=== PATIENT | male | born 1970 | race Caucasian/White ===

== ENCOUNTER 2016-10-29 20:52 | Emergency (ER) | payer MEDICAID ==
[~2016-10-29] VITALS: Ht 170.2 cm; Wt 95.7 kg
[2016-10-29 21:09] VITALS: BP 147/48; PULSE 98; TEMP 99.2; O2SAT 96
--- NOTE | 2016-10-29 21:28 | PD ---
HPI Chief Complaint: Laceration/Skin Injury Time Seen by Provider: 21:15 Travel History International Travel<30 days: No Contact w/Intl Traveler<30days: No Traveled to known affect area: No History of Present Illness HPI This 46-year-old male is complaining of pain in his right knee. He was hammering at home and hit his right right knee directly. He sustained a laceration and the area is quite painful. [facility] Social History Tobacco Use: No Allergies-Medications (Allergen,Severity, Reaction): Coded Allergies: No Known Allergies (Unverified , 10/29/16) Reported Meds & Prescriptions Reported Meds & Active Scripts Active Keflex (Cephalexin) 500 Mg Capsule 500 Mg PO Q6H Review of Systems General / Constitutional: No: Fever, Chills Cardiovascular: No: Chest Pain or Discomfort, Palpitations Respiratory: No: Cough, Shortness of Breath Gastrointestinal: No: Nausea, Vomiting Genitourinary: No: Frequency Musculoskeletal: No: Myalgias, Arthralgias Skin: No Rash Neurologic: No: Weakness, Dizziness Psychiatric: No: Anxiety Hematologic/Lymphatic: No: Easy Bruising Physical Exam Narrative GENERAL: Well-developed male SKIN: Focused skin assessment warm/dry. HEAD: Atraumatic. Normocephalic. EYES: Pupils equal and round. No scleral icterus. No injection or drainage. ENT: No nasal bleeding or discharge. Mucous membranes pink and moist. NECK: Trachea midline. No JVD. MUSCULOSKELETAL: No obvious deformities. No clubbing. No cyanosis. No edema. There is a 1.5 cm laceration overlying the proximal tibia. The surrounding area is somewhat tender. He is able to flex and extend his knee NEUROLOGICAL: Awake and alert. No obvious cranial nerve deficits. Motor grossly within normal limits. Normal speech. PSYCHIATRIC: Appropriate mood and affect; insight and judgment normal. Data Data Last Documented VS Vital Signs Date Time Temp Pulse Resp B/P Pulse Ox O2 Delivery O2 Flow Rate FiO2 10/29/16 21:25 20 10/29/16 21:09 99.2 98 147/48 96 Orders Knee, Complete (4vws) (10/29/16 21:15) Tetanus/Diphtheria Tox Adult (Tetanus/Di (10/29/16 21:45) Cephalexin (Keflex) (10/29/16 22:00) [facility] Medical Decision Making Medical Screen Exam Complete: Yes Emergency Medical Condition: Yes Medical Record Reviewed: Yes Differential Diagnosis Differential includes laceration knee, fracture Narrative Course X-ray of the knee is negative for fracture. This laceration is deep and may well extend to bone. We placed on Keflex. Laceration be sutured and he will be released Diagnosis Primary Impression: Laceration of right knee Qualified Code: S81.011A - Laceration of right knee, initial encounter Additional Instructions: Suture removal 10 days Scripts Cephalexin (Keflex)500 Mg [id number] Mg PO Q6H #20 CAP Ref 0 Prov:Marcell Lombardi MD 10/29/16 Disposition: 01 DISCHARGE HOME Condition: Stable Marcell Lombardi MD Oct 29, 2016 21:28
--- NOTE | 2016-10-29 21:39 | RADRPT ---
EXAM DATE/TIME: 10/29/2016 21:25 [place] COMPARISON: No previous studies available for comparison. INDICATIONS : Laceration to anterior surface of right knee after patient hit himself with a hammer MEDICAL HISTORY : None. SURGICAL HISTORY : None. ENCOUNTER: Initial ACUITY: 1 day PAIN SCORE: 2/10 LOCATION: Right anterior knee FINDINGS: Four view examination of the right knee demonstrates no evidence of fracture or dislocation. Bony mi neralization is normal. The articular surfaces are intact. The suprapatellar soft tissues have a no rmal configuration. CONCLUSION: Unremarkable examination of the right knee. Daniel Arias MD on October 29, 2016 at 21:37 Board Certified Radiologist. This report was verified electronically.
[2016-10-29] MEDS ORDERED: TETANUS/DIPHTHERIA TOXOID ADULT 0.5 ML VIAL IM ONE (21:45)
[2016-10-29] MEDS ORDERED: CEPH-460 PO (21:54)
[2016-10-29] MEDS ORDERED: CEPHALEXIN MONOHYDRATE 500 MG CAP PO ONE (22:00)
--- NOTE | 2016-10-29 22:12 | PD ---
Physical Exam Time Seen by Provider: 22:00 Narrative I was asked by Dr. Ford to repair a laceration on this patient. Please see his note for further details. Data Data Last Documented VS Vital Signs Date Time Temp Pulse Resp B/P Pulse Ox O2 Delivery O2 Flow Rate FiO2 10/29/16 21:25 20 10/29/16 21:09 99.2 98 147/48 96 Orders Knee, Complete (4vws) (10/29/16 21:15) Tetanus/Diphtheria Tox Adult (Tetanus/Di (10/29/16 21:45) Cephalexin (Keflex) (10/29/16 22:00) MDM Supervised Visit with RADHA: Yes Procedures Procedure Narrative LACERATION LOCATION: Right anterior knee LENGTH: 1.5 cm NUMBER OF STITCHES/ILEANA: 1 horizontal mattress, 2 simple interrupted REPAIR: The area of the laceration was prepped with Betadine and sterilely draped. The laceration was infiltrated with 1% lidocaine. The wound was copiously irrigated and explored without evidence of foreign body, tendon injury or neurovascular injury. The wound was closed using 4-0 Prolene. This was a single layer repair. A sterile dressing was applied. The patient was advised to keep the dressing clean and dry. Patient tolerated the procedure well. Diagnosis Primary Impression: Laceration of right knee Qualified Code: S81.011A - Laceration of right knee, initial encounter Referrals: NO PRIMARY CARE PHYSICIAN (PCP) Patient Instructions: General Instructions, Laceration (ED) Departure Forms: Tests/Procedures Additional Instruction: Suture removal 10 days Scripts Cephalexin (Keflex)500 Mg [id number] Mg PO Q6H #20 CAP Ref 0 Prov:Marcell Lombardi MD 10/29/16 Disposition: 01 DISCHARGE HOME Condition: Stable Mikaela Franco Oct 29, 2016 22:12
== END 2016-10-29 22:21 | disposition home or self-care (01) ==
LOC: PHED 20:52
DX: S81.011A Laceration without foreign body, right knee, initial encounter (principal); W22.8XXA Striking against or struck by other objects, initial encounter; Y93.H3 Activity, building and construction; Y92.009 Unspecified place in unspecified non-institutional (private) residence as the place of occurrence of the external cause; Z23 Encounter for immunization
CPT/HCPCS: 12001; 73564; 90471; 90714